=== PATIENT | female | born 1955 | race Caucasian/White ===

== ENCOUNTER 2017-04-09 07:23 | Day surgery (SDC) | payer OTHER ==
[~2017-04-09] VITALS: Ht 154.9 cm; Wt 74.8 kg
[2017-04-09] MEDS ORDERED: LIDOCAINE 2% 1000 MG/50 ML VIAL INJ ONE (08:18)
[2017-04-09 09:25] LABS: BASOPHILS # (AUTO) 0.2 K/uL (0.00-0.22); BASOPHILS % (AUTO) 3.4 % (0.0-2.0); EOSINOPHILS # (AUTO) 0.2 K/uL (0-0.4); EOSINOPHILS % (AUTO) 4.9 % (0.0-4.0); HEMOGLOBIN 13.7 g/dL (12.0-16.0); LYMPHOCYTES # (AUTO) 1.5 K/uL (2.5-16.5); LYMPHOCYTES % (AUTO) 31.4 % (20.5-51.1); MEAN CORPUSCULAR HEMOGLOBIN 27 pg (27-31); MEAN CORPUSCULAR HGB CONC 32 g/dL (33-37); MEAN CORPUSCULAR VOLUME 84 fL (80-94); MONOCYTES # (AUTO) 0.6 K/uL (0.8-1.0); MONOCYTES % (AUTO) 13.2 % (1.7-9.3); NEUTROPHILS # (AUTO) 2.4 K/uL (1.8-7.7); NEUTROPHILS % (AUTO) 47.1 % (42.2-75.2); PLATELET COUNT (AUTO) 216 K/uL (140-450); RED BLOOD CELL COUNT(AUTO) 5.13 MIL/uL (4.20-5.40); RED CELL DISTRIBUTION WIDTH 15.3 % (11.6-13.7); WHITE BLOOD COUNT (AUTO) 4.9 K/uL (4.8-10.8)
[2017-04-09 09:39] LABS: PROTHROMBIN TIME 10.6 secs (10.8-13.4)
[2017-04-09 09:40] LABS: ALBUMIN 3.5 g/dL (3.4-5.0); BILIRUBIN,DIRECT 0.1 mg/dL (0.0-0.3); TOTAL BILIRUBIN 0.3 mg/dL (0.0-1.0)
== END 2017-04-09 10:54 | disposition home or self-care (01) ==
LOC: MDS 07:23 → MMU 07:23 → MDS 10:54
PROVIDERS: ATTEND Internal Medicine Gastroenterology
DX: B18.2 Chronic viral hepatitis C (principal); I10 Essential (primary) hypertension; E66.9 Obesity, unspecified; Z98.890 Other specified postprocedural states; Z79.899 Other long term (current) drug therapy; F17.210 Nicotine dependence, cigarettes, uncomplicated; Z68.33 Body mass index [BMI] 33.0-33.9, adult
CPT/HCPCS: 36415; 47000; 76942; 80076; 85025; 85610; 85730; 87522; 88307; 88313; J2001; Q0092

== ENCOUNTER 2018-07-17 23:15 | Emergency (ER) | payer OTHER ==
[~2018-07-17] VITALS: Ht 154.9 cm; Wt 71.2 kg
[2018-07-17 23:24] VITALS: BP 156/81
--- NOTE | 2018-07-17 23:32 | NUR ---
PT AMBULATED TO ER BED 7
--- NOTE | 2018-07-17 23:36 | NUR ---
DR. MICHELLE BEDSIDE EVALUATING PT
--- NOTE | 2018-07-17 23:42 | NUR ---
PT WOUND IRRIGATED WITH STERILE WATER
--- NOTE | 2018-07-17 23:58 | NUR ---
PT TAKEN TO CT VIA WHEELCHAIR
--- NOTE | 2018-07-18 00:21 | NUR ---
dr hugo at bedside for staple placement to wound.
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
[2018-07-18 00:25] VITALS: BP 148/82
--- NOTE | 2018-07-18 00:25 | NUR ---
Patient discharged with v/s stable. Written and verbal after care instructions given and explained. Patient verbalized understanding. Ambulatory with steady gait. All questions addressed prior to discharge. Advised to follow up with PMD.
== END 2018-07-18 00:25 | disposition home or self-care (01) ==
LOC: MED 23:15
DX: S01.01XA Laceration without foreign body of scalp, initial encounter (principal); I10 Essential (primary) hypertension; E03.9 Hypothyroidism, unspecified; M06.9 Rheumatoid arthritis, unspecified; W20.1XXA Struck by object due to collapse of building, initial encounter; Y93.89 Activity, other specified; Y92.89 Other specified places as the place of occurrence of the external cause; Y99.8 Other external cause status
CPT/HCPCS: 70450; 99284

== ENCOUNTER 2018-07-29 19:05 | Emergency (ER) | payer OTHER ==
[~2018-07-29] VITALS: Ht 154.9 cm; Wt 69.1 kg
[2018-07-29 19:16] VITALS: BP 138/78
--- NOTE | 2018-07-29 19:17 | NUR ---
TO LOBBY AWAITNG BED IN ED, LIVIA.
--- NOTE | 2018-07-29 20:17 | NUR ---
PT REMAINS IN LOBBY IN STABLE CONDITION. AWAITING BED IN ED.
--- NOTE | 2018-07-29 20:36 | NUR ---
PT AMBULATES TO CHAIR D
--- NOTE | 2018-07-29 20:55 | NUR ---
staple removal set up , pt sitting in chair awake and calm.
--- NOTE | 2018-07-29 20:59 | NUR ---
dr hugo evaluating pt.
[2018-07-29 21:00] VITALS: BP 135/74
== END 2018-07-29 21:00 | disposition home or self-care (01) ==
LOC: MED 19:05
DX: S01.91XD Laceration without foreign body of unspecified part of head, subsequent encounter (principal); I10 Essential (primary) hypertension; E05.90 Thyrotoxicosis, unspecified without thyrotoxic crisis or storm; X58.XXXD Exposure to other specified factors, subsequent encounter
CPT/HCPCS: 99283